=== PATIENT | female | born 1990 | race Caucasian/White ===

== ENCOUNTER 2017-06-10 22:31 | Emergency (ER) | payer BC, MEDICAID ==
--- NOTE | 2017-06-10 23:25 | ER Document Report ---
HPI - HPI Pain Level: 4 Notes: Patient is a 26-year-old female with no significant past medical history who presents the ED complaining of right sided substernal chest pain that began about 2 days ago. Patient states that she did have soreness in her muscle lateral to that area and it just moved to the middle over the last couple days. Patient states that movements make the pain worse as well as pressing on it. Patient denies any prolonged immobilization, recent trauma/surgery, distance travel, hormone replacement, smoking, IV drug use, cancer, diabetes, or previous DVT/PE. Patient denies any cardiac history. Patient states that she is eating and drinking without any difficulties. She is urinating normally and having normal bowel movements. She has not been using anything for her symptoms or taking any [id number] medications. Denies any drug allergies. Denies any headache, fever, neck pain, URI, sore throat, palpitations, syncope, cough, shortness of breath, wheeze, dyspnea, abdominal pain, nausea/vomiting/diarrhea, urinary retention, dysuria, hematuria, or rash. - ROS Notes: REVIEW OF SYSTEMS: CONSTITUTIONAL : Denies fever, chills, or sweats. Denies recent illness. EENT: Denies eye, ear, throat, or mouth pain or symptoms. Denies nasal or sinus congestion or discharge. Denies throat, tongue, or mouth swelling or difficulty swallowing. CARDIOVASCULAR: see hpi. Denies palpitations or racing or irregular heart beat. Denies ankle edema. RESPIRATORY: Denies cough, cold, or chest congestion. Denies shortness of breath, difficulty breathing, or wheezing. GASTROINTESTINAL: Denies abdominal pain or distention. Denies nausea, vomiting , or diarrhea. Denies blood in vomitus, stools, or per rectum. Denies black, tarry stools. Denies constipation. GENITOURINARY: Denies difficulty urinating, painful urination, burning, frequency, blood in urine, or discharge. MUSCULOSKELETAL: see hpi. SKIN: Denies rash, lesions or sores. NEUROLOGICAL: Denies passing out or loss of consciousness. Denies dizziness or lightheadedness. Denies headache. Denies problems with gait or speech. Denies sensory loss, numbness, or tingling. Denies seizures. ALL OTHER SYSTEMS REVIEWED AND NEGATIVE. Dictation was performed using [employer] voice recognition software - REPRODUCTIVE Reproductive: REPORTS: : Past Medical History - Social History Smoking Status: Never Smoker Family History: Reviewed & Not Pertinent - Immunizations Hx Diphtheria, Pertussis, Tetanus Vaccination: Yes Vertical Provider Document - CONSTITUTIONAL Agree With Documented VS: Yes Notes: PHYSICAL EXAMINATION: GENERAL: Well-appearing, well-nourished and in no acute distress. A&Ox4, comfortable appearing. HEAD: Atraumatic, normocephalic. EYES: Pupils equal round and reactive to light, extraocular movements intact, sclera anicteric, conjunctiva are normal. ENT: Nares patent and without discharge. oropharynx clear without exudates. No tonsilar hypertrophy or erythema. Moist mucous membranes. NECK: Normal range of motion, supple without lymphadenopathy Chest: No flail chest. Equal rise/fall. + moderate tenderness to the rt costocondral area (correlates with pain described). Tenderness also elicited with stretching of the pectoral muscle. LUNGS: Breath sounds clear to auscultation bilaterally and equal. No wheezes rales or rhonchi. HEART: Regular rate and rhythm without murmurs, rubs, gallops. ABDOMEN: Soft, nontender, nondistended abdomen. No guarding, no rebound. No masses appreciated. Normal bowel sounds present. No CVA tenderness bilaterally. Musculoskeletal: FROM to passive/active. Strength 5+/5. Patti neg. No calf erythema or swelling. Extremities: No cyanosis, clubbing, or edema b/l. Peripheral pulses 2+. Capillary refill less than 3 seconds. NEUROLOGICAL: Cranial nerves grossly intact. Normal speech, normal gait. Normal sensory, motor exams PSYCH: Normal mood, normal affect. SKIN: Warm, Dry, normal turgor, no rashes or lesions noted. - INFECTION CONTROL TRAVEL OUTSIDE OF THE [place] IN LAST 30 DAYS: No - RESPIRATORY O2 Sat by Pulse Oximetry: 100 Course - Re-evaluation Re-evalutation: 06/11/17 01:20 Patient is an afebrile, well-hydrated, 26-year-old female who presents to the ED with chest wall pain, suspect costochondritis at this time. Vitals are stable. PE is otherwise unremarkable. Chest x-ray and EKG were unremarkable for any acute pathology. Patient has moderate chest wall tenderness which correlates to the pain described. Patient is tolerating p.o. without any difficulties. Well's score 0. PERC score 0. Patient has low cardiac/DVT/PE risk factors. Low suspicion for any ACS, PE, pneumothorax, pericarditis, dissection, respiratory compromise, severe dehydration, sepsis, meningitis, or other systemic emergent condition at this time. Patient is aware that her condition can change from initial presentation and she needs to monitor symptoms closely and seek medical attention for any acute changes. Recommend conservative measures for symptoms. Recheck with your PCM in 3-5 days. Return to the ED with any worsening/concerning symptoms otherwise as reviewed in discharge. Patient is in agreement. - Vital Signs Vital signs: Temp Pulse Resp BP Pulse Ox 98.1 F 73 18 128/72 H 100 06/10/17 22:49 06/10/17 22:49 06/10/17 22:49 06/10/17 22:49 06/10/17 22:49 Discharge - Discharge Clinical Impression: Chest wall pain Condition: Stable Disposition: HOME, SELF-CARE Instructions: Chest Wall Pain ([facility]) Additional Instructions: Rest, Ice Tylenol/ibuprofen as needed Light stretches daily Strength exercises as able Moist heat and massage may help F/u with your PCP in 3-5 days for a recheck Return to the ED with any worsening symptoms and/or development of fever, headache, chest pain, palpitations, syncope, shortness of breath, trouble breathing, abdominal pain, n/v/d, muscle weakness/paralysis, numbness/tingling, swelling, redness, or other worsening symptoms that are concerning to you. Forms: Elevated Blood Pressure Referrals: [facility] [Provider Group] - Follow up as needed [facility] [Provider Group] - Follow up as needed
--- NOTE | 2017-06-11 01:20 | RADIOLOGY REPORT (SQ) ---
EXAM DESCRIPTION: CHEST PA/LAT CLINICAL HISTORY: 26 years, Female, chest pain COMPARISON: None. FINDINGS: Normal lung volume, clear parenchyma, normal cardiac silhouette, and intact bony thorax. IMPRESSION: No acute cardiopulmonary findings. 2011 [email or web address]- All Rights Reserved
[2017-06-11 01:38] VITALS: BP 128/71
--- NOTE | 2017-06-11 09:39 | EKG REPORT ---
SEVERITY:- NORMAL ECG - SINUS RHYTHM : Confirmed by: Dorota Adrian 11-Jun-2017 09:38:54
== END 2017-06-11 01:38 | disposition home or self-care (01) ==
LOC: ER 22:31
DX: O26.899 Other specified pregnancy related conditions, unspecified trimester (principal); R07.89 Other chest pain; Z3A.00 Weeks of gestation of pregnancy not specified
CPT/HCPCS: 71046; 93005; 93010; 99284

== ENCOUNTER 2019-07-17 11:17 | Emergency (ER) | payer SELFPAY ==
--- NOTE | 2019-07-17 12:06 | ER Document Report ---
ED Medical Screen (RME) - General Chief Complaint: Abdominal Pain Stated Complaint: ABDOMINAL PAIN Time Seen by Provider: 07/17/19 12:03 Notes: 28-year-old female presents for lower abdominal/pelvic pain that started yesterday. Patient states this pain coincides with her period that she gets every 2 months. Patient states associated nausea/vomiting/diarrhea. Patient denies any urinary symptoms, fever, chills, constipation. Patient states her aunt and mother have had cysts and fibroids and she is concerned about this. Abdomen soft nontender. Mild suprapubic tenderness. I have greeted and performed a rapid initial assessment of this patient. A comprehensive ED assessment and evaluation of the patient, analysis of test results and completion of the medical decision making process with be conducted by additional ED providers. TRAVEL OUTSIDE OF THE [place] IN LAST 30 DAYS: No - Related Data Allergies/Adverse Reactions: latex [Latex] Allergy (Severe, Verified 03/14/15 10:35) Anaphylaxis bee sting Allergy (Severe, Uncoded 03/07/15 09:56) Past Medical History Renal/ Medical History: Denies: Hx Peritoneal Dialysis - Immunizations Hx Diphtheria, Pertussis, Tetanus Vaccination: Yes Physical Exam - Vital signs Vitals: Temp Pulse Resp BP Pulse Ox 98.9 F 89 16 125/77 96 07/17/19 11:39 07/17/19 11:39 07/17/19 11:39 07/17/19 11:39 07/17/19 11:39 Course - Vital Signs Vital signs: Temp Pulse Resp BP Pulse Ox 98.9 F 89 16 125/77 96 07/17/19 11:39 07/17/19 11:39 07/17/19 11:39 07/17/19 11:39 07/17/19 11:39
[2019-07-17 12:35] LABS: ABSOLUTE LYMPHOCYTES (AUTO) 2.8 10^3/uL (0.5-4.7); ABSOLUTE MONOCYTES (AUTO) 0.7 10^3/uL (0.1-1.4); ABSOLUTE NEUT (AUTO) 7.2 10^3/uL (1.7-8.2); BASOPHILS % (AUTO) 0.3 % (0-2); EOSINOPHILS % (AUTO) 0.4 % (0-6); HEMOGLOBIN 15.4 g/dL (12.0-15.5); LYMPHOCYTES % (AUTO) 25.9 % (13-45); MEAN CORPUSCULAR HEMOGLOBIN 30.9 pg (27.0-33.4); MEAN CORPUSCULAR HGB CONC 35.9 g/dL (32.0-36.0); MEAN CORPUSCULAR VOLUME 86 fl (80-97); MONOCYTES % (AUTO) 6.1 % (3-13); PLATELET COUNT 310 10^3/uL (150-450); RED BLOOD COUNT 4.99 10^6/uL (3.72-5.28); RED CELL DISTRIBUTION WIDTH 12.9 % (11.5-14.0); SEGMENTED NEUTROPHILS % (AUTO) 67.3 % (42-78); TOTAL CELLS COUNTED % (AUTO) 100 %; WHITE BLOOD COUNT 10.7 10^3/uL (4.0-10.5)
[2019-07-17 12:41] LABS: APPEARANCE,URINE CLEAR; BILIRUBIN,URINE NEGATIVE (NEGATIVE); COLOR,URINE YELLOW; GLUCOSE, URINE NEGATIVE (NEGATIVE); KETONES,URINE NEGATIVE (NEGATIVE); PROTEIN,URINE NEGATIVE (NEGATIVE); URINE SPECIFIC GRAVITY 1.011; UROBILINOGEN,URINE NEGATIVE mg/dL (<2.0)
[2019-07-17 12:55] LABS: ALBUMIN 5.2 g/dL (3.5-5.0); ALKALINE PHOSPHATASE 52 U/L (38-126); ANION GAP 11 (5-19); ASPARTATE AMINO TRANSFERASE 35 U/L (14-36); BILIRUBIN,TOTAL 0.7 mg/dL (0.2-1.3); BLOOD UREA NITROGEN 8 mg/dL (7-20); CALCIUM 9.6 mg/dL (8.4-10.2); CARBON DIOXIDE 26 mmol/L (22-30); CHLORIDE 103 mmol/L (98-107); GLUCOSE 93 mg/dL (75-110); POTASSIUM 4.1 mmol/L (3.6-5.0); TOTAL PROTEIN 8.1 g/dL (6.3-8.2)
[2019-07-17] MEDS ORDERED: KETOROLAC TROMETHAMINE INJ/PF 30 MG/1 ML SDV IV ONE (13:38)
--- NOTE | 2019-07-17 13:39 | ER Document Report ---
ED General - General Chief Complaint: Abdominal Pain Stated Complaint: ABDOMINAL PAIN Time Seen by Provider: 07/17/19 12:03 Notes: Patient is a 28-year-old white female with a past medical history of what she describes as severe pain with the onset of her menstruation who presents to the emergency department chief complaint of the same. She reports that she normally gets her menses every other month and this is been normal for her for a long time. She states that she always gets pain in the right lower quadrant that is sharp and stabbing in nature with the onset of her menstruation. She states this began yesterday. Reports it was worse on the right over the bumps in the road. States is associated with nausea vomiting and diarrhea. She reports that she has a long family history of the females in her family having painful severe menstruations. Also reports history of ovarian and cervical cancer in the family. She denies any fever, chills or night sweats. No chest pain or shortness of breath. No vaginal discharge. No urinary complaints. TRAVEL OUTSIDE OF THE [place] IN LAST 30 DAYS: No - Related Data Allergies/Adverse Reactions: latex [Latex] Allergy (Severe, Verified 07/17/19 13:57) Anaphylaxis bee sting Allergy (Severe, Uncoded 07/17/19 13:57) Past Medical History - Social History Smoking Status: Never Smoker Family History: Reviewed & Not Pertinent Patient has suicidal ideation: No Patient has homicidal ideation: No Renal/ Medical History: Denies: Hx Peritoneal Dialysis - Immunizations Hx Diphtheria, Pertussis, Tetanus Vaccination: Yes Review of Systems - Review of Systems Gastrointestinal: Abdominal pain, Diarrhea, Nausea, Vomiting Female Genitourinary: Vaginal bleeding -: Yes All other systems reviewed and negative Physical Exam - Vital signs Vitals: Temp Pulse Resp BP Pulse Ox 98.9 F 89 16 125/77 96 07/17/19 11:39 07/17/19 11:39 07/17/19 11:39 07/17/19 11:39 07/17/19 11:39 - General General appearance: Appears well, Alert In distress: None - Respiratory Respiratory status: No respiratory distress Chest status: Nontender Breath sounds: Normal Chest palpation: Normal - Cardiovascular Rhythm: Regular Heart sounds: Normal auscultation - Abdominal Inspection: Normal Distension: No distension Bowel sounds: Normal Tenderness: Tender - Right lower quadrant, positive obturator and psoas. - Back Back: Normal, Nontender - Neurological Neuro grossly intact: Yes Cognition: Normal Orientation: AAOx4 Drea Coma Scale Eye Opening: Spontaneous Granite Coma Scale Verbal: Oriented Granite Coma Scale Motor: Obeys Commands Drea Coma Scale Total: 15 Speech: Normal - Psychological Associated symptoms: Normal affect, Normal mood - Skin Skin Temperature: Warm Skin Moisture: Dry Skin Color: Normal Course - Re-evaluation Re-evalutation: 07/17/19 14:53 CT scan showing possible left-sided ureteral stone versus phlebolith however patient has no left-sided symptoms. She does have blood in the urine but she is currently on menstruation. Doubt stone. Otherwise work-up is unremarkable. This is consistent with her previous history of reported signs and symptoms of her severe pain with menstruation every other month. She reports that the Toradol here gave her some symptomatic relief. She is drinking a bottle water, smiling and texting on her phone. She is in no acute distress. She is stable and appropriate for discharge and outpatient follow-up. I counseled her at length regarding the importance of outpatient follow-up and advised that she return here or any ER immediately with any new, persistent or worsening symptoms. She verbalized understood and agreed. - Vital Signs Vital signs: Temp Pulse Resp BP Pulse Ox 98.9 F 89 16 125/77 96 07/17/19 11:39 07/17/19 11:39 07/17/19 11:39 07/17/19 11:39 07/17/19 11:39 - Laboratory Result Diagrams: 07/17/19 12:18 07/17/19 12:18 Laboratory results interpreted by me: 07/17/19 07/17/19 07/17/19 12:18 12:18 12:18 WBC 10.7 H Albumin 5.2 H Urine Blood LARGE H Leukocyte Esterase Rfl SMALL H Discharge - Discharge Clinical Impression: PMS (premenstrual syndrome) Abdominal pain Qualifiers: Abdominal location: unspecified location Qualified Code(s): R10.9 - Unspecified abdominal pain Condition: Stable Disposition: HOME, SELF-CARE Instructions: Premenstrual Syndrome ([facility]) Additional Instructions: Follow-up with your [facility]IEF primarily and your regular doctor in 2 to 3 days for reevaluation. Return here or any ER immediately with any new, persistent or worsening symptoms. Prescriptions: Tramadol HCl [Ultram 50 mg Tablet] 50 mg PO Q6HP PRN #12 tablet PRN Reason: Ketorolac Tromethamine [Toradol 10 mg Tablet] 10 mg PO Q8HP PRN #20 tablet PRN Reason:
--- NOTE | 2019-07-17 13:47 | RADIOLOGY REPORT (SQ) ---
EXAM DESCRIPTION: U/S NON OB PEL TV W/DOPPLER COMPLETED DATE/TIME: 07/17/2019 1:24 pm REASON FOR STUDY: pelvic pain, concern for cyst/fibroids COMPARISON: None. TECHNIQUE: Dynamic and static grayscale images acquired of the pelvis via transvaginal approach and recorded on PACS. Additional selected color Doppler and spectral images recorded. LIMITATIONS: None. FINDINGS: UTERUS: Normal in size and contour measuring 6.0 x 5.6 x 3.9 cm. Retroverted uterus. ENDOMETRIAL STRIPE: No focal thickening. Endometrial stripe measures 8 mm. CERVIX: No nabothian cysts. RIGHT OVARY AND DOPPLER: Normal size measuring 3.5 x 2.1 x 1.9 cm. No worrisome masses. Normal arteri al vascular flow without evidence for torsion. LEFT OVARY AND DOPPLER: Normal size measuring 3.6 x 2.6 x 2.1 cm. Scattered left ovarian cysts, larg est measuring 2.7 cm, likely dominant follicle. No worrisome masses. Normal arterial vascular flow w ithout evidence for torsion. FREE FLUID: None noted. OTHER: No other significant finding. IMPRESSION: Unremarkable pelvic ultrasound. TECHNICAL DOCUMENTATION: JOB ID: [id number] [employer]- All Rights Reserved Rev-10/25 Reading location - IP/workstation name: [email or web address]
--- NOTE | 2019-07-17 14:25 | RADIOLOGY REPORT (SQ) ---
EXAM DESCRIPTION: CT ABD/PELVIS WITH IV ONLY COMPLETED DATE/TIME: 07/17/2019 2:11 pm REASON FOR STUDY: RLQ pain COMPARISON: None. TECHNIQUE: CT scan of the abdomen and pelvis performed using helical scanning technique with dynamic intravenous contrast injection. No oral contrast. Images reviewed with lung, soft tissue, and bone windows. Reconstructed coronal and sagittal MPR images reviewed. Delayed images for evaluation of the urinary system also acquired. All images stored on PACS. All CT scanners at this facility use dose modulation, iterative reconstruction, and/or weight based d osing when appropriate to reduce radiation dose to as low as reasonably achievable (ALARA). [facility]: Dose Right [facility]: CareDose [facility]: Dose Right [facility]: Teradose 4D [facility]: Scil Proteins CONTRAST TYPE AND DOSE: contrast/concentration: Isovue 350.00 mg/ml; Total Contrast Delivered: 82.0 ml; Total Saline Delivered: 37.7 ml RENAL FUNCTION: None required. The patient is less than 50 years old. RADIATION DOSE: . LIMITATIONS: None. FINDINGS: LOWER CHEST: No significant findings. No nodules or infiltrates. LIVER: Normal size. No masses. No dilated ducts. SPLEEN: Normal size. No focal lesions. PANCREAS: No masses. No significant calcifications. No adjacent inflammation or peripancreatic fluid collections. Pancreatic duct not dilated. GALLBLADDER: No identified stones by CT criteria. No inflammatory changes to suggest cholecystitis. ADRENAL GLANDS: No significant masses or asymmetry. RIGHT KIDNEY AND URETER: No solid masses. No significant calcifications. No hydronephrosis or hyd roureter. LEFT KIDNEY AND URETER: No solid masses. Punctate calcific density in the region of the distal left ureter, possibly stone versus pelvic phleboliths. No hydronephrosis or hydroureter. AORTA AND VESSELS: No aneurysm. No dissection. Renal arteries, SMA, celiac without stenosis. RETROPERITONEUM: No retroperitoneal adenopathy, hemorrhage or masses. BOWEL AND PERITONEAL CAVITY: No evidence of intestinal obstruction. No focal bowel wall thickening. Trace pelvic free fluid, likely physiologic. APPENDIX: Normal. PELVIS: Trace pelvic free fluid. Decompressed urinary bladder. Ovarian follicles bilaterally. Retr overted uterus. ABDOMINAL WALL: No masses. No hernias. BONES: No acute bony abnormality. No suspicious osseous lesions. OTHER: No other significant finding. IMPRESSION: 1. Punctate calcific density in the region of the distal left ureter, possibly stone ve rsus pelvic phleboliths. No hydronephrosis. Recommend correlation with urinalysis. 2. Trace pelvic fluid, likely physiologic. 3. No other evidence of acute intra-abdominal/pelvic process. TECHNICAL DOCUMENTATION: JOB ID: [id number] Quality ID # [id number]: Final reports with documentation of one or more dose reduction techniques (e.g., Au tomated exposure control, adjustment of the mA and/or kV according to patient size, use of iterative reconstruction technique) 2010 [employer]- All Rights Reserved Reading location - IP/workstation name: [email or web address]
[2019-07-17 15:48] VITALS: BP 118/59
== END 2019-07-17 15:48 | disposition home or self-care (01) ==
LOC: ER 11:17
DX: N94.3 Premenstrual tension syndrome (principal); R10.9 Unspecified abdominal pain; Z91.040 Latex allergy status; Z91.030 Bee allergy status
CPT/HCPCS: 36415; 87086; 83690; 84703; 85025; 80053; 81001; 76830; 93976; 74177; J1885; 96374; 99284